=== PATIENT | female | born 1945 | race Caucasian/White ===

== ENCOUNTER 2017-04-01 19:17 | Emergency (ER) | payer MEDICARE ==
[~2017-04-01] VITALS: Ht 160 cm; Wt 63.5 kg
[~2017-04-01 19:17] MED LIST: ACE325 PO; ADV100/50 INH; AZIT-1 PO; AZIT-17 PO; BUD180R INH; BUDE90AE2 IH; CAL1L PO; CALC-965 PO; CART1TAB5 PO; CHOL400T24 PO; CITA-139 PO; COLC0.6C3 PO; FISH OIL 1,2001 CAP PO; FLUT16SP19 NS; FOLIC ACID; GLUC-307 PO; HYD2 PO; HYDR115S2 PO; HYDR12.558 PO; HYDR2TAB42 PO; INDO50CA92 PO; LEVA15HF IH; LISI-355 PO; LOSA-57 PO; LOSA50TA72 PO; MECL-111 PO; MULT-1 PO; MULT1TAB64 PO; OMEP-137 PO; OMEP-153 PO; PRA20 PO; PRAV40TA78 PO; PRE20 PO; VITA-192 PO; VITA-324 PO; ZOLP-350 PO; ZOLP-358 PO; [UNRECOGNIZED DRUG - CODE] PO; [UNRECOGNIZED DRUG - CODE] PO
--- NOTE | 2017-04-01 19:20 | ER Report ---
History and Physical Time Seen By MD: 19:19 Hx. of Stated Complaint: unable to void constipated HPI/ROS 71-year-old had surgery 8 days ago for hammer toes on her left foot has been on [place] since surgery has a history of a bladder tack as well has had problems urinating today has had constipation for the last 4-5 days took Metamucil today without results from has got some low crampy abdominal pain Remainder of the 14 system rev: Yes Allergies: Coded Allergies: No Known Drug Allergies (Unverified , 04/01/17) Home Meds Active Scripts Docusate Sodium (COLACE) 100 Mg Capsule, 100 MG PO BID, #30 CAPSULE Prov:DONAL WATSON 04/01/17 Citalopram Hydrobromide (CITALOPRAM HBR) 20 Mg Tablet, 0.5 TAB PO QDAY, #10 TAB 0 Refills Prov:DANTE LANGLEY MD 03/25/17 Losartan Potassium (LOSARTAN POTASSIUM) 50 Mg Tablet, 1 TAB PO QDAY, #90 TAB 1 Refill Prov:DANTE LANGLEY MD 01/06/17 Pravastatin Sodium (PRAVASTATIN SODIUM) 40 Mg Tablet, 1 TAB PO HS, #90 TAB 4 Refills Prov:DANTE LANGLEY MD 04/01/16 Reported Medications Hydrocodone Bit/Acetaminophen (HYDROCODON-ACETAMINOPHEN 5-325) 1 Each Tablet, 2 EACH PO Q6H, TAB 04/01/17 Levalbuterol Tartrate (XOPENEX HFA) 15 Gm Hfa.aer.ad, 1 PUFF IH QDAY Y for COUGH 01/25/15 Calcium Carbonate/Vitamin D3 (CALCIUM 1,000 + D3 CAPLET) 1 Each Tablet, 1 EACH PO QDAY 01/25/15 Past Medical/Surgical History History of hypertension, COPD, asthma, GERD, mastectomy, history of hammertoe surgery 8 days ago, left foot Reviewed Nurses Notes: Yes Old Medical Records Reviewed: Yes Hx Smoking: No Smoking Status: Never Smoker Hx Substance Use Disorder: No Hx Alcohol Use: Yes (OCC) Family History of: HTN Constitutional Vital Sign - Last 24 Hours 04/01/17 19:27 Temp 97.8 Pulse 50 Resp 18 B/P (MAP) 196/88 (124) Pulse Ox 96 O2 Delivery Room Air Intake and Output 04/01/17 04/01/17 04/02/17 15:00 23:00 07:00 Output Total 1200 ml Balance -1200 ml Physical Exam 71 year old female alert and oriented mild distresstm non reddened, throat non reddened, hrr, lungs cta, abd soft bs x 4 bladder is palpable Medical Decision Making Data Points Result Diagram: 04/01/17195104/01/171951 Laboratory Hematology Test 04/01/17 00:00 04/01/17 19:52 Urine Color Straw Urine Clarity Clear Urine pH 6.0 pH (4.8-9.5) Urine Specific [place] 1.003 Urine Protein Negative mg/dL (NEGATIVE) Urine Glucose (UA) Negative mg/dL (NEGATIVE) Urine Ketones Negative mg/dL (NEGATIVE) Urine Blood Negative (NEGATIVE) Urine Nitrite Negative (NEGATIVE) Urine Bilirubin Negative (NEGATIVE) Urine Urobilinogen Negative mg/dL (0.2-1.9) Urine Leukocyte Esterase Negative (NEGATIVE) Urine RBC <1 /HPF (0-2/HPF) Urine WBC None /HPF (0-5/HPF) Urine Squamous Epithelial Cells None /LPF (NONE-FEW) Urine Bacteria Negative /HPF (NONE-FEW) Urine Mucus None /HPF (NONE-FEW) Red Blood Count 5.00 M/uL (4.17-5.56) Mean Corpuscular Volume 89.2 fL (80.0-96.0) Mean Corpuscular Hemoglobin 30.1 pg (26.0-33.0) Mean Corpuscular Hemoglobin Concent 33.7 g/dL (32.0-36.0) Red Cell Distribution Width 13.1 % (11.5-14.5) Mean Platelet Volume 7.8 fL (7.2-11.1) Neutrophils % (Manual) 66 % (39.4-72.5) Lymphocytes % (Manual) 21 % (17.6-49.6) Monocytes % (Manual) 8 % (4.1-12.4) Eosinophils % (Manual) 4 % (0.4-6.7) Basophils % (Manual) 1 % (0.3-1.4) Sodium Level 138 mmol/L (137-145) Potassium Level 4.1 mmol/L (3.5-5.0) Chloride Level 103 mmol/L (98-107) Carbon Dioxide Level 25 mmol/L (22-31) Blood Urea Nitrogen 14 mg/dl (7-18) Creatinine 0.70 mg/dl (0.52-1.04) Glomerular Filtration Rate Calc > 60.0 Random Glucose 110 mg/dl (75-110) Calcium Level 9.9 mg/dl (8.4-10.2) Total Bilirubin 0.4 mg/dl (0.2-1.3) Aspartate Amino Transf (AST/SGOT) 21 U/L (0-35) Alanine Aminotransferase (ALT/SGPT) 34 U/L (0-56) Alkaline Phosphatase 96 U/L (0-126) Total Protein 7.4 gm/dl (6.3-8.2) Albumin 3.7 g/dl (3.5-5.0) Lipase 68 U/L (23-300) Chemistry Test 04/01/17 00:00 04/01/17 19:52 Urine Color Straw Urine Clarity Clear Urine pH 6.0 pH (4.8-9.5) Urine Specific [place] 1.003 Urine Protein Negative mg/dL (NEGATIVE) Urine Glucose (UA) Negative mg/dL (NEGATIVE) Urine Ketones Negative mg/dL (NEGATIVE) Urine Blood Negative (NEGATIVE) Urine Nitrite Negative (NEGATIVE) Urine Bilirubin Negative (NEGATIVE) Urine Urobilinogen Negative mg/dL (0.2-1.9) Urine Leukocyte Esterase Negative (NEGATIVE) Urine RBC <1 /HPF (0-2/HPF) Urine WBC None /HPF (0-5/HPF) Urine Squamous Epithelial Cells None /LPF (NONE-FEW) Urine Bacteria Negative /HPF (NONE-FEW) Urine Mucus None /HPF (NONE-FEW) White Blood Count 7.2 k/uL (4.5-11.0) Red Blood Count 5.00 M/uL (4.17-5.56) Hemoglobin 15.0 g/dL (12.0-16.0) Hematocrit 44.6 % (34.0-47.0) Mean Corpuscular Volume 89.2 fL (80.0-96.0) Mean Corpuscular Hemoglobin 30.1 pg (26.0-33.0) Mean Corpuscular Hemoglobin Concent 33.7 g/dL (32.0-36.0) Red Cell Distribution Width 13.1 % (11.5-14.5) Platelet Count 297 K/uL (150-450) Mean Platelet Volume 7.8 fL (7.2-11.1) Neutrophils % (Manual) 66 % (39.4-72.5) Lymphocytes % (Manual) 21 % (17.6-49.6) Monocytes % (Manual) 8 % (4.1-12.4) Eosinophils % (Manual) 4 % (0.4-6.7) Basophils % (Manual) 1 % (0.3-1.4) Glomerular Filtration Rate Calc > 60.0 Calcium Level 9.9 mg/dl (8.4-10.2) Total Bilirubin 0.4 mg/dl (0.2-1.3) Aspartate Amino Transf (AST/SGOT) 21 U/L (0-35) Alanine Aminotransferase (ALT/SGPT) 34 U/L (0-56) Alkaline Phosphatase 96 U/L (0-126) Total Protein 7.4 gm/dl (6.3-8.2) Albumin 3.7 g/dl (3.5-5.0) Lipase 68 U/L (23-300) Urinalysis Test 04/01/17 00:00 Urine Color Straw Urine Clarity Clear Urine pH 6.0 pH (4.8-9.5) Urine Specific [place] 1.003 Urine Protein Negative mg/dL (NEGATIVE) Urine Glucose (UA) Negative mg/dL (NEGATIVE) Urine Ketones Negative mg/dL (NEGATIVE) Urine Blood Negative (NEGATIVE) Urine Nitrite Negative (NEGATIVE) Urine Bilirubin Negative (NEGATIVE) Urine Urobilinogen Negative mg/dL (0.2-1.9) Urine Leukocyte Esterase Negative (NEGATIVE) Urine RBC <1 /HPF (0-2/HPF) Urine WBC None /HPF (0-5/HPF) Urine Squamous Epithelial Cells None /LPF (NONE-FEW) Urine Bacteria Negative /HPF (NONE-FEW) Urine Mucus None /HPF (NONE-FEW) EKG/Imaging Imaging FACILITY: [facility] [place] PATIENT NAME: Alena Shelby : 1945 MR: [id number] V: [id number] EXAM DATE: ORDERING PHYSICIAN: DONAL WATSON TECHNOLOGIST: Location: [facility] Patient: Alena Shelby : 1945 Visit/Account:[id number] Date of Sevice: 04/01/2017 Abdomen: Indication: Constipation. Technique: Supine views of the abdomen were obtained. Comparison: None. Findings: There is a moderate amount of fecal material throughout the colon. There are no signs of focal dilatation or obstruction. No suspicious calcifications are identified. There is moderate degenerative disc disease, osteoarthritis, and scoliosis in the lumbar spine. No acute skeletal deformity is identified. IMPRESSION: There is a moderate amount of fecal material throughout colon. There are no signs of focal dilatation or obstruction. Report Dictated By: Casa Morin MD at 04/01/2017 8:40 PM Report E-Signed By: Casa Morin MD at 04/01/2017 8:57 PM WSN:[id number] ED Course/Re-evaluation ED Course Clemente catheter was placed thousand cc of urine was returned urine is not infected KUB shows heavy stool load gave her Dulcolax suppository without results give her a soapsuds enema with good results Re-evaluation feels much better after enema will leave clemente in overnight has a f/u for ortho in [facility] and pcp was going to place a cath to help her with the car ride Decision to Disposition Date: Apr 01, 2017 Decision to Disposition Time: 21:13 Depart Departure Latest Vital Signs Vital Signs Date Time Temp Pulse Resp B/P (MAP) Pulse Ox O2 Delivery O2 Flow Rate FiO2 04/01/17 19:27 97.8 50 18 196/88 (124) 96 Room Air Impression: Primary Impression: Postoperative urinary retention Additional Impression: Constipation Condition: Improved Disposition: HOME OR SELF-CARE Referrals: DANTE LANGLEY MD (PCP) 1 Day New Scripts Docusate Sodium (COLACE) 100 Mg Capsule 100 MG PO BID, #30 CAPSULE Prov: DONAL WATSON 04/01/17 Patient Instructions: Acute Urinary Retention in Women (GEN), Constipation (ED) Additional Instructions: Take Colace 100 mg twice a day, and drink plenty of water, see her primary care physician tomorrow Problem Qualifiers DONAL WATSON Apr 01, 2017 19:20
[2017-04-01] MEDS ORDERED: BISACODYL 10 MG SUPP PR ONE (19:40)
[2017-04-01 20:02] LABS: PLATELET COUNT, AUTOMATED 297 K/uL (150-450)
[2017-04-01] MEDS ORDERED: LOR5/325 PO (20:08)
[2017-04-01] MEDS ORDERED: DOCU-416 PO (20:18)
--- NOTE | 2017-04-01 21:01 | RADIOLOGY IMAGING REPORT ---
FACILITY: [facility] PATIENT NAME: Alena Shelby : 1945 MR: [id number] V: [id number] EXAM DATE: ORDERING PHYSICIAN: DONAL WATSON TECHNOLOGIST: Location: [facility] Patient: Alena Shelby : 1945 Visit/Account:[id number] Date of Sevice: 04/01/2017 Abdomen: Indication: Constipation. Technique: Supine views of the abdomen were obtained. Comparison: None. Findings: There is a moderate amount of fecal material throughout the colon. There are no signs of fo nohemy dilatation or obstruction. No suspicious calcifications are identified. There is moderate degener ative disc disease, osteoarthritis, and scoliosis in the lumbar spine. No acute skeletal deformity is identified. IMPRESSION: There is a moderate amount of fecal material throughout colon. There are no signs of foca l dilatation or obstruction. Report Dictated By: Casa Morin MD at 04/01/2017 8:40 PM Report E-Signed By: Casa Morin MD at 04/01/2017 8:57 PM WSN:[id number]
[2017-04-01 21:42] VITALS: BP 161/79
[2017-04-02] MEDS ORDERED: BISA-236 RC (13:09)
== END 2017-04-01 21:43 | disposition home or self-care (01) ==
LOC: ER 19:32
DX: R33.9 Retention of urine, unspecified (principal); K59.00 Constipation, unspecified
CPT/HCPCS: 36415; 74018; 81001; 83690; 85007; 85027; 99283; A9270; 82040; 82247; 82310; 82374; 82435; 82565; 82947; 84075; 84132; 84155; 84295; 84450; 84460; 84520

== ENCOUNTER → 2017-05-07 | Outpatient (CLI) | payer MEDICARE ==
[~2017-05-07] MED LIST changes: +ACET500T68 PO; +ASCO-182 PO; +BISA-236 RC; +CALC100T4 PO; +CALC1TAB53 PO; +DOCU-416 PO; +DOXY25TA54 PO; +GLUC-111 PO; +GLUC-198 PO; +LOR5/325 PO; +MULT-27 PO; +NAPR220C12 PO; +OMEP-125 PO; +OMEP10CA40 PO
--- NOTE | 2017-05-07 16:43 | RADIOLOGY IMAGING REPORT ---
FACILITY: [facility] PATIENT NAME: Alena Shelby : 1945 MR: [id number] V: [id number] EXAM DATE: [id number] ORDERING PHYSICIAN: JEF ABRAMS TECHNOLOGIST: [facility] Patient: Alena Shelby : 1945 Visit/Account:[id number] Date of Sevice: 05/07/2017 Exam type: VENOUS DOPP LOW LEFT EXTREMITY History: Swelling of left lower leg Comparison: None. Findings: Left lower extremity veins were imaged including the left common femoral vein, greater saphenous vein , superficial femoral vein, popliteal vein, posterior tibial vein, anterior tibial vein and peroneal veins revealing no evidence of intraluminal thrombi. The veins were compressible and demonstrated no rmal augmentation IMPRESSION: 1. No sonographic evidence DVT involving the left lower extremity veins A message was left for JEF ABRAMS at 05/07/2017 4:39 PM. Report Dictated By: Irish West MD at 05/07/2017 4:36 PM Report E-Signed By: Irish West MD at 05/07/2017 4:39 PM WSN:[id number]
== END ==
LOC: RAD 15:16
PROVIDERS: ATTEND Family Medicine
DX: M79.89 Other specified soft tissue disorders (principal); R60.0 Localized edema

== ENCOUNTER 2018-01-01 01:49 | Day surgery (SDC) | payer MEDICARE ==
[~2018-01-01] VITALS: Ht 160 cm; Wt 64.0 kg
[~2018-01-01 01:49] MED LIST changes: +CALC1TAB32 PO; +CATAPLEX PO; +CITA-137 PO; -CITA-139 PO; +CITA-145 PO; +DICL100G39 TP; +INDO-23 PO; -INDO50CA92 PO; -LOSA50TA72 PO; +LOSA50TA80 PO; +Levalbuterol INH; +MAGNESIUM LACTATE PO; +MANGANESE PO; +RANI-366 PO; +SOUR1000 PO; +ZYPAN PO; +[UNRECOGNIZED DRUG - CODE] PO; +[UNRECOGNIZED DRUG - OTHER] PO; +[UNRECOGNIZED DRUG - OTHER] PO
[2018-01-01 14:39] LABS: PLATELET COUNT, AUTOMATED 302 K/uL (150-450)
[2018-01-01] MEDS ORDERED: MIDAZOLAM 2 MG/2 ML VIAL IVP PRN (14:50)
[2018-01-01] MEDS ORDERED: NORMOSOL R SOLN(*) 1000 ML BAG 1,000 ML IV PRN (14:50)
[2018-01-01] MEDS ORDERED: ceFAZolin(*) 1 GM VIAL 1 GM in NS(*) 0.9% 100 ML ADDVANT BAG 100 ML IVPB ONE (14:50)
[2018-01-01] MEDS ORDERED: LIDOCAINE/SOD BICARB 8.4% SYR ID ONE (14:50)
[2018-01-01 14:52] VITALS: BP 152/96
[2018-01-01] MEDS ORDERED: HYDROCORTISONE 1% CR 28.35 GM TP ONE (15:36)
--- NOTE | 2018-01-01 15:36 | EKG ---
[place] [facility] [place] LIZETTE CORDOVA : [id number] MR: [id number] V: [id number] EXAM DATE: ORDERING PHYSICIAN: MILENA ZALDIVAR TECHNOLOGIST: CHAD Test Reason : PRE OP Blood Pressure : / mmHG Vent. Rate : 068 BPM Atrial Rate : 068 BPM P-R Int : 138 ms QRS Dur : 108 ms QT Int : 438 ms P-R-T Axes : 086 060 070 degrees QTc Int : 465 ms Sinus rhythm with fusion complexes Otherwise normal ECG When compared with ECG of 25-JAN-2013 09:00, fusion complexes are now present premature ventricular complexes are no longer present Confirmed by MILENA ARZOLA ([id number]) on 01/01/2018 7:29:44 PM Referred By: JENS Confirmed By:MILENA ARZOLA
[2018-01-01] MEDS: fentaNYL CITR 100 MCG/2 ML AMP ONE (17:50)
[2018-01-01] MEDS ORDERED: FAMO20TA28 PO (17:52)
[2018-01-01] MEDS ORDERED: IBUP-1671 PO (17:53)
[2018-01-01] MEDS ORDERED: PHEN200T32 PO (17:53)
[2018-01-01] MEDS ORDERED: ACET-3017 PO (17:54)
[2018-01-01] MEDS ORDERED: CIPR-344 PO (17:54)
[2018-01-01] MEDS ORDERED: HYDR28.425 TOP (17:56)
[2018-01-01] MEDS ORDERED: hydrALAZINE HCL 20 MG/ML VIAL ONE (18:01)
[2018-01-01 18:42] VITALS: BP 151/87
[2018-01-01 18:44] VITALS: BP 135/84
--- NOTE | 2018-01-01 19:18 | OPERATIVE REPORT 1 ---
EVENT DATE: January 01, 2018 SURGEON: Lauri Villeda MD ANESTHESIOLOGIST: Lauri Bingham MD ANESTHESIA: General anesthetic. PREOPERATIVE DIAGNOSES 1. Urethral caruncle. 2. Meatal stenosis. POSTOPERATIVE DIAGNOSES 1. Urethral caruncle. 2. Meatal stenosis. PROCEDURES PERFORMED 1. Excisional biopsy and fulguration of urethral caruncle approximately 1 cm in its greatest diameter. 2. Urethral dilation. 3. Hydrodistention of the bladder. DESCRIPTION OF PROCEDURE Under general anesthetic, the patient was prepped and draped in the extended lithotomy position. The urethra calibrated approximately 18- to 20-Greek. The ventral urethral caruncle approximately 1 cm was excised in total. The base and any residual caruncle was fulgurated in its entirety. Bleeding appeared to be satisfactorily controlled. The 17 panendoscope admitted through the urethra into the bladder. The urethra was normal. No urethral polyps were visualized. Bladder showed 4+ trabeculation. Trigone and ureteral orifices were normal. She had a second-degree cystocele. No purulent material was expressed from the urethra. No masses were palpable. Bladder filled under gravity flow as measured. It totaled approximately 900 mL. On drainage of the bladder, there was no bloody drainage. On reexamination of the bladder, there were no glomerulations or demonstrable tears. Bladder was drained. Scope was withdrawn. Hydrocortisone cream was placed per urethra. A 22-Greek Motta was left indwelling, to be removed in recovery room if all is going well and minimal bleeding. Patient tolerated the procedure satisfactorily and returned to the recovery room in satisfactory condition. This is a 72-year-old, white female referred by Dr. Higginbotham and Dr. Paredes for complaint of an anal tear and trouble urinating with associated urinary retention, and they drained approximately 1000 mL plus. When examined in the office, her anal tear appeared to be satisfactorily resolved. She was diagnosed with 1 cm urethral caruncle ventrally and meatal stenosis. I explained the lesion and need for treatment. She was agreeable, and she followed up as requested for further evaluation and treatment. She subsequently had her evaluation and treatment. See operative note for details. Patient will be ready for discharge home when alert and functional. She is to force fluids 2 L per day. Activities are as tolerated. She is to continue to use her medications. A copy of instructions were given to the patient. She is to follow up in the office this coming Friday, the December. She was instructed on urethral meatus care with hydrocortisone cream t.i.d. and p.r.n. She is explained that if she is having any urethral bleeding, she can apply pressure digitally for approximately 10 minutes to manage hopefully satisfactorily. She was given my personal cell phone number to contact me if there are any problems. She was discharged on Cipro, Pepcid, Motrin, Tylenol No. 3, Pyridium, and hydrocortisone cream therapy. MTDD
== END 2018-01-01 18:40 | disposition home or self-care (01) ==
LOC: OR 01:49
DX: N36.2 Urethral caruncle (principal); N35.92 Unspecified urethral stricture, female; J44.9 Chronic obstructive pulmonary disease, unspecified; I10 Essential (primary) hypertension; K21.9 Gastro-esophageal reflux disease without esophagitis; F41.9 Anxiety disorder, unspecified
CPT/HCPCS: 36415; 52281; 53265; 81001; 85025; 87088; 88305; 93005; A4338; A9270; J0360; J0690; J3010; J7050; 82310; 82374; 82435; 82565; 82947; 84132; 84295; 84520

== ENCOUNTER → 2018-03-10 | Outpatient (CLI) | payer MEDICARE ==
[~2018-03-10] MED LIST changes: +ACET-3017 PO; +CIPR-344 PO; +FAMO20TA28 PO; +HYDR28.425 TOP; +IBUP-1671 PO; +PHEN200T32 PO; +TRIA80OI13 TP
--- NOTE | 2018-03-10 14:24 | RADIOLOGY IMAGING REPORT ---
FACILITY: [facility] [place] PATIENT NAME: Alena Shelby : 1945 MR: [id number] V: [id number] EXAM DATE: ORDERING PHYSICIAN: JEF ABRAMS TECHNOLOGIST: Location: [facility] [place] Patient: Alena Shelby : 1945 Visit/Account:[id number] Date of Sevice: 03/10/2018 DEXA Scan Clinical history: History of postmenopausal osteoporosis. Comparison: DEXA scan from 02/12/1999. LUMBAR SPINE: The bone mineral density (BMD) measured from L2-L4 correlates with a Z-score of 1.6 and a T-score of -0.1 which is Normal as defined by the World Health Organization. The corresponding risk of fracture in the lumbar spine is Not increased compared with a young adult reference population. This value h as increased by 2.2 % since the prior study. More than 5% change is considered significant. HIP: Bone mineral density (BMD) measured in the LEFT total hip region correlates with a Z-score 0.1 and a T-score of -1.6 which is osteopenia as defined by the World Health Organization. The corresponding r isk of fracture in the hip is 3-4 times increased compared to a young adult reference population. Thi s value has decrease by 11.1 % since the prior study. More than 5% change is considered significant. T score left femoral neck -1.4 Bone mineral density (BMD) measured in the Femoral Neck region measures 0.841 g/cm?. IMPRESSION: 1. Lumbar spine: Normal. There has been 2.2% increase in the bone mineral density since the previou s exam. 2. Left Total Hip: Osteopenia. There has been 11.1% decrease in the bone mineral density since the previous exam. 3. Femoral Neck: Bone Mineral Density is 0.841 g/cm? The next DEXA scan of this patient should include the following sites: L2-L4 and the left hip. FRAX? WHO Fracture Risk Assessment Tool link: <http://www.shef.ac.uk/FRAX/tool.jsp?locationValue=9> PLEASE NOTE: 1) The World Health Organization defines low BMD as follows: T-score Normal > -1 Osteopenia < -1 and > -2.5 Osteoporosis < -2.5 without fractures Established osteoporosis < -2.5 with fractures 2) In general, you may wish to consider: Diagnosis Treatment Follow-up DEXA Normal BMD Prevention 2-3 years Osteopenia Prevention/therapy 1-2 years Osteoporosis Therapy Yearly 3) Fracture risk estimated from the T-score is more accurate for vertebral fractures (often spontane ous) than for hip fractures. Report Dictated By: Irish West MD at 03/10/2018 2:15 PM Report E-Signed By: Irish West MD at 03/10/2018 2:17 PM WSN:[id number]
== END ==
LOC: RAD 01:16
PROVIDERS: ATTEND Family Medicine
DX: Z13.820 Encounter for screening for osteoporosis (principal); M85.88 Other specified disorders of bone density and structure, other site; Z87.39 Personal history of other diseases of the musculoskeletal system and connective tissue; Z78.0 Asymptomatic menopausal state
CPT/HCPCS: 77080